=== PATIENT | female | born 1985 | race Two or more races ===

== ENCOUNTER 2023-04-22 23:06 | Emergency (ER) | payer OTHER ==
[~2023-04-22] VITALS: Ht 157.5 cm; Wt 75.0 kg
[2023-04-22 23:36] VITALS: BP 135/70; PULSE 88; RESP 17; TEMP 98.5
[2023-04-23] MEDS ORDERED: ERYTHROMYCIN 0.5% 3.5 GM TUBE OPHTHALMIC OINTMENT OD ONE (00:15)
[2023-04-23] MEDS ORDERED: ACETAMINOPHEN/CODEINE 300-30 MG TABLET PO ONE (00:15)
[2023-04-23] MEDS ORDERED: ACET-2080 PO ×2 (00:16→23:43)
== END 2023-04-23 00:42 | disposition home or self-care (01) ==
LOC: EMS 23:08
DX: S05.01XA Injury of conjunctiva and corneal abrasion without foreign body, right eye, initial encounter (principal); F17.210 Nicotine dependence, cigarettes, uncomplicated; X58.XXXA Exposure to other specified factors, initial encounter; Y93.89 Activity, other specified; Y92.89 Other specified places as the place of occurrence of the external cause; Y99.8 Other external cause status
CPT/HCPCS: 99283